=== PATIENT | male | born 1945 | race Caucasian/White ===

== ENCOUNTER 2019-12-13 16:02 | Emergency (ER) | payer OTHER ==
[~2019-12-13] VITALS: Ht 167.6 cm; Wt 80.9 kg
[2019-12-13] MEDS ORDERED: ELIQUIS5 MG PO (16:55)
[2019-12-13] MEDS ORDERED: PROAIR HFA0.09 MG/AC IH (16:55)
[2019-12-13] MEDS ORDERED: BRIMONIDINE 0.110 ML OP (16:56)
[2019-12-13] MEDS ORDERED: SYMBICORT1 AE2 IH (16:56)
[2019-12-13] MEDS ORDERED: BENZONATATE100 M2 PO (16:56)
[2019-12-13] MEDS ORDERED: ZYRTEC ALLERGY10 MG PO (16:57)
[2019-12-13] MEDS ORDERED: ISOSORBIDE DINI30 M1 PO (16:57)
[2019-12-13] MEDS ORDERED: HCTZ 25MG25 MG PO (16:57)
[2019-12-13] MEDS ORDERED: FAMOTIDINE20 MG PO (16:57)
[2019-12-13] MEDS ORDERED: MELATONIN3 M3 PO (16:58)
[2019-12-13] MEDS ORDERED: LISINOPRIL20 MG PO (16:58)
[2019-12-13] MEDS ORDERED: KAPSPARGO SPRIN50 MG PO (16:58)
[2019-12-13] MEDS ORDERED: SPIRIVA RE2.5 MCG/Ac IH (16:59)
[2019-12-13] MEDS ORDERED: SERTRALINE HYD100 MG PO (16:59)
[2019-12-13] MEDS ORDERED: POTASSIUM CITRA5 MEQ PO (16:59)
[2019-12-13] MEDS ORDERED: MIRTAZAPINE30 MG PO (17:00)
[2019-12-13] MEDS ORDERED: CARDIZEM120 M1 PO (17:00)
[2019-12-13] MEDS ORDERED: CLOPIDOGREL75 M2 PO (17:00)
[2019-12-13] MEDS ORDERED: AUGMENTIN 875-1 EAC1 PO ×2 (18:29→19:19)
[2019-12-13 19:04] VITALS: BP 169/84
== END 2019-12-13 19:37 | disposition home or self-care (01) ==
LOC: ED 16:02
DX: S61.452A Open bite of left hand, initial encounter (principal); I25.10 Atherosclerotic heart disease of native coronary artery without angina pectoris; I25.2 Old myocardial infarction; I10 Essential (primary) hypertension; Z23 Encounter for immunization; Z79.02 Long term (current) use of antithrombotics/antiplatelets; W54.0XXA Bitten by dog, initial encounter; Y92.009 Unspecified place in unspecified non-institutional (private) residence as the place of occurrence of the external cause
CPT/HCPCS: 90715